=== PATIENT | male | born 1990 | race Caucasian/White ===

== ENCOUNTER 2019-12-21 23:58 | Emergency (ER) | payer MEDICAID ==
[~2019-12-21] VITALS: Ht 185.4 cm; Wt 84.0 kg
[~2019-12-21 23:58] MED LIST: NO HOME MEDS
[2019-12-22] MEDS ORDERED: acetaminophen 325mg tablet PO ONE (00:55)
[2019-12-22] MEDS ORDERED: ketorolac tromethamine 15mg/ml inj. IM ONE (00:55)
[2019-12-22] MEDS ORDERED: HYDR-3965 PO (01:23)
[2019-12-22] MEDS ORDERED: ONDA4TAB6 PO (01:23)
--- NOTE | 2019-12-22 01:24 | NUR ---
PT WITH HR 114, OTHERWISE VSS. SPLINT IN PLACE TO LEFT HAND.
[2019-12-22 01:28] VITALS: BP 135/86
== END 2019-12-22 01:28 | disposition home or self-care (01) ==
LOC: ER 23:58
DX: S62.641A Nondisplaced fracture of proximal phalanx of left index finger, initial encounter for closed fracture (principal); S62.398A Other fracture of other metacarpal bone, initial encounter for closed fracture; M79.672 Pain in left foot; F15.90 Other stimulant use, unspecified, uncomplicated; Z56.0 Unemployment, unspecified; Z59.0 Homelessness; Z88.0 Allergy status to penicillin; Z79.899 Other long term (current) drug therapy; W18.39XA Other fall on same level, initial encounter; Y93.89 Activity, other specified; Y92.89 Other specified places as the place of occurrence of the external cause; Y99.8 Other external cause status
CPT/HCPCS: 73130; 99283

== ENCOUNTER 2021-01-04 22:27 | Emergency (ER) | payer MEDICAID ==
[~2021-01-04] VITALS: Ht 185.4 cm; Wt 95.4 kg
[~2021-01-04 22:27] MED LIST changes: +ONDA4TAB6 PO
[2021-01-04] MEDS ORDERED: CefTRIAXone 1000mg IM Kit (w/lidocaine diluent) IM STA (23:09)
[2021-01-04] MEDS ORDERED: DOXY100C76 PO (23:30)
[2021-01-04] MEDS ORDERED: VALA100031 PO (23:30)
[2021-01-04] MEDS ORDERED: LEVO500T89 PO (23:30)
[2021-01-04 23:56] VITALS: BP 132/94
--- NOTE | 2021-01-10 11:13 | NUR ---
Attempted to call patient to educate regarding positive RPR results. Patients number is disconnected unable to reach patient. Addendum: 01/10/21 at 1114 by PREM Patient treated appropriate per positive result.
== END 2021-01-05 00:07 | disposition home or self-care (01) ==
LOC: ER 22:27 → EEVIPCON 22:27 → ER 01-05 00:07
DX: A57 Chancroid (principal); R59.0 Localized enlarged lymph nodes; F15.90 Other stimulant use, unspecified, uncomplicated; Z56.0 Unemployment, unspecified; Z59.0 Homelessness; Z88.0 Allergy status to penicillin; Z79.2 Long term (current) use of antibiotics; Z79.899 Other long term (current) drug therapy
CPT/HCPCS: 36415; 86592; 87252; 96372; 99283; J0696

== ENCOUNTER 2022-02-28 11:55 | Emergency (ER) | payer MEDICAID ==
[~2022-02-28 11:55] MED LIST changes: +VALA100031 PO
== END 2022-02-28 14:13 | disposition left against medical advice (07) ==
LOC: ER 11:56
DX: M25.579 Pain in unspecified ankle and joints of unspecified foot (principal); Z53.21 Procedure and treatment not carried out due to patient leaving prior to being seen by health care provider